=== PATIENT | male | born 2000 | race Two or more races ===

== ENCOUNTER 2022-03-28 23:03 | Emergency (ER) | payer OTHER ==
[~2022-03-28] VITALS: Ht 175.3 cm; Wt 73.5 kg
[2022-03-28 23:08] VITALS: BP 126/66
[2022-03-28] MEDS ORDERED: IBU600T PO (23:39)
== END 2022-03-29 00:28 | disposition home or self-care (01) ==
LOC: ER 23:03
DX: M79.10 Myalgia, unspecified site (principal); F12.10 Cannabis abuse, uncomplicated; F41.9 Anxiety disorder, unspecified
CPT/HCPCS: 71045